=== PATIENT | female | born 1940 | race Caucasian/White ===

== ENCOUNTER 2017-08-25 11:55 | Day surgery (SDC) | payer OTHER, MEDICARE ==
[~2017-08-25] VITALS: Ht 152.4 cm; Wt 103.4 kg
[~2017-08-25 11:55] MED LIST: APRESOLINE50 MG PO; BUMETANIDE2 MG PO; CALCITRIOL0.25 MCG PO; CARVEDILOL12.5 MG PO; DAILY MULTIPLE1 EACH PO; ELIQUIS2.5 MG PO; HUMALOG100 UNIT/2 SC; IMDUR30 MG PO; K-DUR20 MEQ PO; LEVEMIR FL100 UNIT/1 SC; LUBRICANT EYE D10 ML BOTH EYES; MELATONIN5 M1 PO; PRAVACHOL40 MG PO
[2017-08-25 12:24] VITALS: BP 165/71
[2017-08-25 12:30] LABS: HEMATOCRIT 40.4 % (36.0-46.0); MCH 26.9 PG (29.0-34.0); MCHC 32.2 G/DL (30.0-36.0); MCV 83.5 FL (83-99); MEAN PLAT.VOLUME 10.8 uM^3 (9.5-12.4); PLATELET COUNT 123 K/uL (156-360); RBC DIS.WIDTH-CV 16.7 % (11.8-14.6); RBC DIS.WIDTH-SD 50.9 % (39-53); RED BLOOD COUNT 4.84 M/uL (3.80-5.20); WHITE BLOOD COUNT 6.5 K/uL (4.1-10.2)
[2017-08-25 12:53] LABS: ANION GAP 13 MEQ/L (2-14); CHLORIDE 102 MEQ/L (99-109); GFR ESTIMATE (CALCULATED) 27 mL/min/; GLUCOSE 189 mg/dL (70-99); POTASSIUM 4.1 MEQ/L (3.7-5.4); SAMPLE HEMOLYSIS CHECK 0; SAMPLE ICTERIC CHECK 0; SAMPLE LIPEMIA CHECK 0; SODIUM 142 MEQ/L (136-147); UREA NITROGEN (BUN) 75 mg/dL (9-23)
[2017-08-25] MEDS ORDERED: NORCO 5/3251 TABLET PO (15:40)
[2017-08-25 15:46] LABS: POINT-OF-CARE METER ID UU13113675
[2017-08-25 18:00] VITALS: BP 176/73
[2017-08-25 20:04] VITALS: BP 144/68
== END 2017-08-25 20:05 | disposition home or self-care (01) ==
LOC: SDC 11:55
PROVIDERS: Surgery
DX: I12.0 Hypertensive chronic kidney disease with stage 5 chronic kidney disease or end stage renal disease (principal); N18.6 End stage renal disease; I42.9 Cardiomyopathy, unspecified; Z86.73 Personal history of transient ischemic attack (TIA), and cerebral infarction without residual deficits; E78.5 Hyperlipidemia, unspecified; E11.9 Type 2 diabetes mellitus without complications; D63.8 Anemia in other chronic diseases classified elsewhere; K66.0 Peritoneal adhesions (postprocedural) (postinfection); Z79.4 Long term (current) use of insulin; G47.30 Sleep apnea, unspecified; Z79.01 Long term (current) use of anticoagulants; Z87.891 Personal history of nicotine dependence; E66.01 Morbid (severe) obesity due to excess calories; Z68.42 Body mass index [BMI] 45.0-49.9, adult
CPT/HCPCS: 80048; 82948; 85027; C1750; J0330; J0360; J0690; J1170; J2405; J2710; J3010; S0020

== ENCOUNTER 2017-12-22 09:37 | Day surgery (SDC) | payer OTHER, MEDICARE ==
[~2017-12-22] VITALS: Ht 152.4 cm; Wt 103.4 kg
[~2017-12-22 09:37] MED LIST changes: +NORCO 5/3251 TABLET PO
[2017-12-22 10:17] VITALS: BP 186/79
[2017-12-22 10:21] LABS: HEMOGLOBIN 13.7 G/DL (11.9-15.5); MCH 29.2 PG (29.0-34.0); MCHC 33.4 G/DL (30.0-36.0); MCV 87.4 FL (83-99); PLATELET COUNT 112 K/uL (156-360); RBC DIS.WIDTH-CV 15.4 % (11.8-14.6); RBC DIS.WIDTH-SD 49.4 % (39-53); RED BLOOD COUNT 4.69 M/uL (3.80-5.20); WHITE BLOOD COUNT 7.8 K/uL (4.1-10.2)
[2017-12-22 11:02] LABS: CHLORIDE 101 MEQ/L (99-109); CREATININE 1.9 MG/DL (0.6-1.3); GFR ESTIMATE (CALCULATED) 27 mL/min/; GLUCOSE 173 mg/dL (70-99); SODIUM 141 MEQ/L (136-147); UREA NITROGEN (BUN) 64 mg/dL (9-23)
[2017-12-22] MEDS ORDERED: NORCO 5/3251 TABLET PO (12:13)
[2017-12-22 16:15] VITALS: BP 181/75
[2017-12-22 17:10] VITALS: BP 174/80
== END 2017-12-22 17:20 | disposition home or self-care (01) ==
LOC: SDC 09:37
PROVIDERS: Surgery
PROC: 031C0JF Bypass Left Radial Artery to Lower Arm Vein with Synthetic Substitute, Open Approach (ICD-10-PCS; principal; 2017-12-22)
DX: I12.0 Hypertensive chronic kidney disease with stage 5 chronic kidney disease or end stage renal disease (principal); E11.22 Type 2 diabetes mellitus with diabetic chronic kidney disease; N18.6 End stage renal disease; E78.5 Hyperlipidemia, unspecified; I42.9 Cardiomyopathy, unspecified; Z86.73 Personal history of transient ischemic attack (TIA), and cerebral infarction without residual deficits; G47.30 Sleep apnea, unspecified; D63.8 Anemia in other chronic diseases classified elsewhere; I89.0 Lymphedema, not elsewhere classified; M85.80 Other specified disorders of bone density and structure, unspecified site; Z87.891 Personal history of nicotine dependence; Z79.4 Long term (current) use of insulin; Z79.01 Long term (current) use of anticoagulants; Z95.5 Presence of coronary angioplasty implant and graft
CPT/HCPCS: 80048; 82948; 85027; C1768; J0690; J1170; J1644; J2250; J2405; J3010